=== PATIENT | female | born 1975 | race Caucasian/White ===

== ENCOUNTER 2020-07-12 06:57 | Outpatient (NON) | payer OTHER, BC, SELFPAY ==
[2020-07-13 00:37] LABS: SARS-CoV-2 RNA PCR Negative
== END 2020-07-12 06:58 ==
PROVIDERS: PCP Family Medicine; Visit Provider Family Medicine
DX: R05 Cough (principal); Z20.828 Contact with and (suspected) exposure to other viral communicable diseases
CPT/HCPCS: 87635; C9803; U0003

== ENCOUNTER 2021-11-11 13:03 | Outpatient (CLI) | payer OTHER, SELFPAY ==
--- NOTE | ~2021-11-11 | US_ITS ---
EXAMINATION: US transvaginal DATE: 11/11/2021 13:23 INDICATION: Abnormal uterine bleeding TECHNIQUE: Multiple endovaginal sonographic images of the pelvis were obtained. COMPARISON: 06/11/2017 FINDINGS: The uterus measures 7.8 x 3.5 x 4.7 cm. The endometrial complex measures 3 mm. The right ov ramnoe measures 1.9 x 1.3 x 2.2 cm. The left ovary measures 2.4 x 1.7 x 2.8 cm. There is normal vascular flow in the ovaries. There is no free fluid in the pelvis. IMPRESSION: 1. No sonographic correlate for the patient's symptoms. Reviewed, dictated and finalized at location F. MACY INTAKE COORDINATOR
== END 2021-11-11 13:04 ==
LOC: MICIMG 13:04
PROVIDERS: PCP Family Medicine; Visit Provider Nurse Practitioner
DX: N93.8 Other specified abnormal uterine and vaginal bleeding (principal)
CPT/HCPCS: 76830

== ENCOUNTER 2021-11-14 09:01 | Outpatient (CLI) | payer OTHER, SELFPAY ==
--- NOTE | ~2021-11-14 | XR_ITS ---
EXAMINATION: [id number] EXAM DATE: 11/14/2021 09:13 INDICATION: No known recent injury provided at this time. Pain of the cervical spine posteriorly. TECHNIQUE: Cervical spine frontal, lateral, and open-mouth odontoid projections. There is no prior study for comparison. FINDINGS: There is no evidence of acute cervical fracture. The odontoid process is intact. Pre-dens space is normal. Prevertebral soft tissue is normal. There are no soft tissue abnormalities identi fied. Vertebral body and disc heights are well-maintained. Mild cervical arthropathy. The vertebra l bodies are aligned. IMPRESSION: 1. Mild cervical arthropathy. Reviewed, dictated and finalized at location A. ERABILITY RESEARCHER
== END 2021-11-14 09:02 | disposition home or self-care (01) ==
LOC: ANHIMG 09:05
PROVIDERS: PCP Family Medicine; Visit Provider Family Medicine
DX: M54.2 Cervicalgia (principal)
CPT/HCPCS: 72040

== ENCOUNTER 2022-01-26 00:15 | Day surgery (SDC) | payer BC, SELFPAY ==
[2022-01-20 09:53] VITALS: BMI 29.0
--- NOTE | 2022-01-20 09:59 | PC.NURSE ---
Report to the Outpatient Waiting Room, entrance under the green pavilion located off [facility], at time 0915 on date 01/26/22. OR Time: 1115. - You and your visitor will be asked a series of questions to screen for COVID 19 for your protection. - A mask is required within the hospital. One visitor will be allowed to accompany the patient into the hospital. Patients visitor will be instructed to remain with patient at all times or leave the building. We will allow the visitor to come back to the postoperative area when patient is ready. Preoperative COVID Testing Requirements: TO E-MAIL COPY OF CARD No COVID Test needed if: (proof is required; if not received patient will have Rapid Test prior to entry) - Patient has received COVID Vaccine at least 14 days prior to procedure date or - Patient has positive COVID test result within last 90 days of surgery date. COVID Test needed if above criteria is not met Patients may have clear liquids (water, carbonated beverages, clear teas, apple juice) until 3 hours prior to surgery with a maximum of 20 ounces. - No food from midnight until time of surgery Take the following medications with a SIP of water the morning of surgery: NONE Medications to discontinue per physician: VITAMINS/SUPPLEMENTS Date to take last dose: 01/22/22 Please no make-up, nail andorran, hairspray, perfume, deodorant, or body powder the day of surgery. No jewelry (including any body piercings) or valuables the day of surgery, leave them at home. Please take a shower or bath the night before, or the morning of, surgery with an antibacterial soap. Wear comfortable, loose fitting clothing. - Jewelry must be removed prior to entering the operating room. Rings and piercings that are not removed may be cut off. - The hospital will not accept responsibility for valuables. - Please leave all valuables, including medications, at home the day of surgery. If you are going home after surgery, a licensed company driver must drive you home. - NO public transportation without another adult. - We recommend that an adult stay with you for 24 hours following discharge. - We also recommend that you do not drive, make important decision, drink alcoholic beverages, or take any drugs that were not prescribed by your health care provider for at least 24 hours after your discharge time. Follow any additional instructions given to you from your surgeon. Telephone instructions given to STANTON MOREIRA and asked if any additional questions and then verbalized understanding. Patient advised to call surgeon office or pre surgery nurse liaison [phone] if any additional questions.
--- NOTE | 2022-01-26 07:58 | WPDHPUPDATE1 ---
History and Physical Update Update Date/Time: 01/26/22 07:58 History and Physical has been reviewed, including an updated exam of the patient. There are NO changes in the patient's condition. Risks, benefits, and alternatives have been discussed and questions answered. Patient agrees to proceed with procedure.
--- NOTE | 2022-01-26 08:20 | PM.HPGS ---
History of Present Illness History of Present Illness Consent: Risks, benefits, and alternatives have been discussed and questions answered. Patient agrees to proceed with procedure. Chief complaint: Abnormal Uterine Bleeding Narrative: Ladonna Rocha is a 46 year old female status post endometrial ablation in 2016 with good control of heavy bleeding. She has been on progesterone 200mg days 1 through 12 for control of timing of her bleeding and has done quite well for the past several years. Patient reports at her well-woman exam in October that she has been having random spotting for the prior 3 months. Pelvic ultrasound was ordered and appears normal. It was recommended to proceed with further evaluation with hysteroscopy and D& C. Risks of infection, bleeding, perforation, and inability to enter the uterine cavity due to prior ablation are reviewed. Patient voices understanding and agrees to proceed. Review of Systems Review of Systems: not repeated day of surgery; patient states no changes in status PMFSH Past Medical History Medical History (Updated 01/26/22 @ 08:26 by Rashida Ruiz MD) Elevated parathyroid hormone Kidney stone (normal spontaneous vaginal delivery) Pulmonary nodule Status post hysteroscopy 2006, 2017, 2019 Surgical History Surgical History (Updated 01/26/22 @ 08:26 by Rashida Ruiz MD) H/O lithotripsy H/O: History of endometrial ablation 2006 with thermal ablation and 2016 with Vera ablation History of kidney surgery Nephrostomy tube placed in 2017 Family History Family History Mother Hypertension Family history of gastrointestinal disorder Family history of type 2 diabetes mellitus Family history of lupus erythematosus Father Hypertension Family history of type 1 diabetes mellitus Grandparent Family history of gastrointestinal disorder Family history of Alzheimer's disease Family history of malignant neoplasm of breast in first degree relative Family history of seizure disorder Other Family history of anemia Social History Social History Smoking status: Never smoker Second hand tobacco smoke exposure: No Alcohol intake: never Substance use: never Substance use type: does not use Living arrangements: with family Spiritual care concerns: No Agree to blood products: Yes Meds Home Medications and Allergies Home Medications Medication Instructions Recorded Confirmed Type potassium citrate 10 mEq (1,080 20 meq PO TID tablet 05/14/21 03/08/22 History mg) tablet,extended release omeprazole magnesium 20 mg 20 mg PO BID 11/12/21 01/20/22 History tablet,delayed release hydroxyzine HCl 25 mg PO HS 01/20/22 01/20/22 History Allergies Allergy/AdvReac Type Severity Reaction Status Date / Time No Known Allergies Allergy Verified 01/20/22 09:51 Exam Const: General: healthy appearing and alert Orientation/consciousness: patient oriented x3 Resp: Effort & Inspection: normal respiratory effort Auscultation: clear to auscultation bilaterally Cardio: Rate: regular rate Rhythm: regular rhythm GI: GI Palp: Yes Soft to palpation, No Tenderness to palpation present (GI) and No Palpable mass present : External Female Exam: normal external appearance Speculum Exam - Vagina: normal appearance of the vagina and normal vaginal discharge Speculum Exam - Cervix: normal appearance of the cervix Bimanual exam- vagina & uterus: uterine size normal and consistency normal Bimanual Exam- Adnexa, other: normal adnexae and No adnexal tenderness Neuro: General: patient oriented x3 Assessment and Plan Assessment and plan (1) Irregular bleeding: Code(s): N92.6 - Irregular menstruation, unspecified Status: Acute Assessment and Plan: Plan is to proceed with D&C hysteroscopy
--- NOTE | 2022-01-26 09:34 | P.PNAN_ITS ---
Anes - Initial Pre Proc Eval Procedure: Operation Date: 01/26/22 11:15 Proposed Procedures p Hysteroscopy, Dilation and Curettage - Rashida Ruiz MD Date/Time: 01/26/22 09:34 Surgeon: Rashida Ruiz MD Pre Op Diagnosis: Abnormal Uterine Bleeding Patient Data Age: 46 Gender: F Height: 1.68 m Weight: 81.25 kg Allergies Allergy/AdvReac Type Severity Reaction Status Date / Time No Known Allergies Allergy Verified 01/20/22 09:51 Home Medications Medication Instructions Recorded Confirmed Type potassium citrate 10 mEq (1,080 20 meq PO TID tablet 03/28/21 01/20/22 History mg) tablet,extended release omeprazole magnesium 20 mg 20 mg PO BID 11/12/21 01/20/22 History tablet,delayed release hydroxyzine HCl 25 mg PO HS 01/20/22 01/20/22 History Patient hx anesthesia problems: post op nausea/vomiting Family hx anesthesia problems: none Results Review: All pre-operative results and documents have been reviewed as part of the pre-operative evaluation. [facility] Past Medical History Medical History (Updated 01/26/22 @ 09:34 by Esau Wagner DO) Elevated parathyroid hormone GERD (gastroesophageal reflux disease) Hiatal hernia Kidney stone (normal spontaneous vaginal delivery) Pulmonary nodule Status post hysteroscopy 2006, 2017, 2019 Surgical History Surgical History (Updated 01/26/22 @ 08:26 by Rashida Ruiz MD) H/O lithotripsy H/O: History of endometrial ablation 2006 with thermal ablation and 2016 with Vera ablation History of kidney surgery Nephrostomy tube placed in 2017 Family History Family History Mother Hypertension Family history of gastrointestinal disorder Family history of type 2 diabetes mellitus Family history of lupus erythematosus Father Hypertension Family history of type 1 diabetes mellitus Grandparent Family history of gastrointestinal disorder Family history of Alzheimer's disease Family history of malignant neoplasm of breast in first degree relative Family history of seizure disorder Other Family history of anemia Social History Social History Smoking status: Never smoker Second hand tobacco smoke exposure: No Alcohol intake: never Substance use: never Substance use type: does not use Living arrangements: with family Spiritual care concerns: No Agree to blood products: Yes Anes - Eval Final PreProcedure Day of Procedure 01/26/22 09:34 Patient weight: overweight Heart: regular rate and rhythm Lungs: clear to auscultation and normal air movement Airway: Mallampati scale class II Neurological: alert and oriented Last oral intake: >/= 8 hours ASA classification: III Emergent: no Anesthetic plan: proceed Anesthesia type and monitoring: general GIVS and standard monitoring Results Review: All pre-operative results and documents have been reviewed as part of the pre-operative evaluation. Informed Consent: The patient's anesthetic plan and its attendant risks and benefits were discussed with the patient/family/POA. Questions were solicited and answers provided to the satisfaction of the patient/family/POA.
[2022-01-26] MEDS: LACTATED RINGERS 1,000 ML 30 ML IV CONT (09:45)
[2022-01-26] MEDS: ACETAMINOPHEN 500 MG TABLET 1000 MG PO (09:45)
[2022-01-26 09:49] VITALS: BP 144/83; PULSE 82; RESP 18; TEMP 37.2; O2SAT 96
[2022-01-26] MEDS: KETOROLAC 30 MG/ML VIAL (*BKC) IV PUSH (11:02)
--- NOTE | 2022-01-26 11:22 | W.PM.PROC2 ---
Procedure Note - Detailed Date of Procedure 01/26/22 Pre-op Diagnosis Abnormal Uterine Bleeding Post-op Diagnosis Same Procedure Performed D&C hysteroscopy Surgeon Rashida Ruiz MD Anesthesia MAC and Local Findings Internal cervix is stenotic. Endometrium shows evidence of prior ablation. There is thickened tissue at the endometrial cervical junction on the patient's left posterior wall. Description of Procedure The patient is taken to the operating room and placed under anesthesia in the dorsal lithotomy position. She was prepped and draped in the usual sterile fashion. [place] speculum was placed in the vagina and the cervix grasped on the anterior lip with a tenaculum. Each quadrant was injected with 1% lidocaine. The uterus was attempted to be sounded and stenosis is noted at 3cm. The os Finders are used in the cavity able to be entered. The cervix is then serially dilated with difficulty. The diagnostic hysteroscope was placed with the stated findings. The MyoSure device is opened and placed and the thickened tissue is excised in its entirety. The hysteroscope was removed and the medium sharp curette used to curette the endometrium until a good uterine cry was noted in all areas. All instruments are removed. Sponge, needle, and instrument counts are correct per the OR staff. Patient is awakened from anesthesia and taken to recovery in stable condition. Estimated Blood Loss 5 Drains No Packing No Pathology Yes (Endometrial shavings and curettings) Complications No immediate complications Condition Stable Disposition PACU
[2022-01-26 11:23] VITALS: BP 149/90; PULSE 90; RESP 16; O2SAT 96
[2022-01-26 11:50] VITALS: BP 114/76; PULSE 84
== END 2022-01-26 12:20 | disposition home or self-care (01) ==
PROVIDERS: PCP Family Medicine; Visit Provider Obstetrics & Gynecology Gynecology
PROC: 0U5B8ZZ Destruction of Endometrium, Via Natural or Artificial Opening Endoscopic (ICD-10-PCS; CPT 58563; principal; 2022-01-26 11:15)
DX: N92.6 Irregular menstruation, unspecified (principal); N85.8 Other specified noninflammatory disorders of uterus
CPT/HCPCS: 58558; 88305; A9270; J1885; J2250; J2704; J3010; J7120

== ENCOUNTER 2022-07-09 17:03 | Emergency (ER) | payer BC, SELFPAY ==
[2022-07-09 17:13] VITALS: BP 154/93; PULSE 111; RESP 18; TEMP 36.8; O2SAT 100
--- NOTE | 2022-07-09 17:40 | ED.FEMALEGU ---
HPI - Female Genitourinary General Chief complaint: Urogenital-Female Stated complaint: uti complaint Time Seen by Provider: 07/09/22 17:28 Source: patient Mode of arrival: ambulatory Limitations: no limitations History of Present Illness HPI Narrative: Patient presents today complaining of left flank pain intermittently x1 week. She has also had right flank pain during this time as well. She is complaining of pain at the urethra as well. She has passed 2 kidney stones over the past week. She has had vomiting at night the past 2 nights due to the flank pain. She is been taking Tylenol and Flomax. Significant history for kidney stones. She has an appointment with her urologist and a CT scan scheduled prior to her visit in 5 days. She came in today to make sure that she did not have a UTI as she was hospitalized last year for urosepsis. Related Data Home Medications Medication Instructions Recorded Confirmed potassium citrate 10 mEq (1,080 20 meq PO TID 03/28/21 07/09/22 mg) tablet,extended release omeprazole magnesium 20 mg 20 mg PO BID 11/12/21 07/09/22 tablet,delayed release ergocalciferol (vitamin D2) 1,250 1,250 mcg PO WEEKLY 07/09/22 07/09/22 mcg (50,000 unit) capsule quetiapine 100 mg tablet 100 mg PO DAILY 07/09/22 07/09/22 tamsulosin 0.4 mg capsule 0.4 mg PO PRN PRN pain 07/09/22 07/09/22 Allergies Allergy/AdvReac Type Severity Reaction Status Date / Time No Known Allergies Allergy Verified 07/09/22 17:10 Review of Systems Review of Systems: CONSTITUTIONAL: Denies body aches, fever, chills, or sweats. EYES: Denies visual changes, redness, or discharge. ENT: Denies rhinorrhea, congestion, sore throat, or otalgia. CARDIOVASCULAR: Denies chest pain, palpitations, or edema. RESPIRATORY: Denies cough or dyspnea. GASTROINTESTINAL: Denies abdominal pain, nausea, vomiting, or diarrhea.+ Flank pain GENITOURINARY: Denies dysuria or hematuria.+ Urethral pain SKIN: Denies rash, itching, or wounds. MUSCULOSKELETAL: Denies back pain, joint pain, or myalgia. NEUROLOGIC: Denies headache, numbness, tingling, or weakness. PSYCH: Denies depression or anxiety. PMFSH Past Medical History Medical History Elevated parathyroid hormone GERD (gastroesophageal reflux disease) Hiatal hernia Kidney stone (normal spontaneous vaginal delivery) Pulmonary nodule Status post hysteroscopy 2006, 2016, 2019 Surgical History Surgical History H/O lithotripsy H/O: History of endometrial ablation 2006 with thermal ablation and 2016 with Vera ablation History of kidney surgery Nephrostomy tube placed in 2017 Family History Family History Mother Hypertension Family history of gastrointestinal disorder Family history of type 2 diabetes mellitus Family history of lupus erythematosus Father Hypertension Family history of type 1 diabetes mellitus Grandparent Family history of gastrointestinal disorder Family history of Alzheimer's disease Family history of malignant neoplasm of breast in first degree relative Family history of seizure disorder Other Family history of anemia Social History Social History Smoking status: Never smoker Second hand tobacco smoke exposure: No Alcohol intake: never Substance use: never Substance use type: does not use Spiritual care concerns: No Agree to blood products: Yes Comments At time of signature, I have reviewed and agree with nursing past medical, surgical, social and family history unless otherwise noted. Please see nursing chart for further information. There is no relevant family history pertinent to the presenting complaint Exam Narrative: GENERAL: Well-appearing, well-nourished, and in no
== END 2022-07-09 17:44 | disposition home or self-care (01) ==
PROVIDERS: Emergency Provider Nurse Practitioner; PCP Family Medicine
DX: R10.9 Unspecified abdominal pain (principal); K21.9 Gastro-esophageal reflux disease without esophagitis
CPT/HCPCS: 81003; 99213; G0463

== ENCOUNTER 2022-12-04 08:03 | Emergency (ER) | payer OTHER, SELFPAY ==
[2022-12-04 08:14] VITALS: BP 144/81; PULSE 104; RESP 18; TEMP 36.6; O2SAT 100
--- NOTE | 2022-12-04 08:14 | ED.FEMALEGU ---
HPI - Female Genitourinary General Chief complaint: Urogenital-Female Stated complaint: Possible UTI Time Seen by Provider: 12/04/22 08:14 Source: patient, RN notes reviewed and old records reviewed Mode of arrival: ambulatory Limitations: no limitations History of Present Illness HPI Narrative: 47-year-old female presents [facility] with concerns for a UTI. patient reports she has a history of kidney stones and passed 2 last week. Started with urgency, burning and frequency yesterday morning as well as lower back pain. has had some nausea without abdominal pain, fevers, chest pain or shortness of breath last menstrual period 11/21/22 MD elicited complaint: dysuria and UTI Related Data Home Medications Medication Instructions Recorded Confirmed potassium citrate 10 mEq (1,080 20 meq PO TID 03/28/21 12/04/22 mg) tablet,extended release omeprazole magnesium 20 mg 20 mg PO BID 11/12/21 12/04/22 tablet,delayed release hydroxyzine HCl 25 mg tablet 25 mg PO HS 12/04/22 12/04/22 progesterone micronized 200 mg 200 mg PO DAILY 12/04/22 12/04/22 capsule Allergies Allergy/AdvReac Type Severity Reaction Status Date / Time No Known Allergies Allergy Verified 12/04/22 08:25 Review of Systems Review of Systems: All systems reviewed & are unremarkable except as noted in HPI and below Constitutional: Constitutional: Reports no additional constitutional complaints Eyes: Eyes: Reports no additional eye complaints ENT: Reports system reviewed and no additional complaints, except as documented Cardiovascular: Cardiovascular: Reports no additional cardiovascular complaints, Denies chest pain and Denies dyspnea Respiratory: Respiratory: Reports no additional respiratory complaints, Denies chest congestion, Denies cough and Denies dyspnea Gastrointestinal: Gastrointestinal: Reports no additional gastrointestinal complaints, Denies abdominal pain, Denies nausea and Denies vomiting Genitourinary: Genitourinary: Reports as per HPI and Reports dysuria Musculoskeletal: Musculoskeletal: Reports no additional musculoskeletal complaints Integumentary/Breasts: Skin/Breast: Reports system reviewed and no additional complaints, except as docu Neurologic: Reports system reviewed and no additional complaints, except as documented Psychiatric: Psychiatric: Reports no additional psychiatric complaints Allergic/Immunologic: Allergic/Immunologic: Reports no additional allergic/immunologic complaints PMFSH Past Medical History Medical History Elevated parathyroid hormone GERD (gastroesophageal reflux disease) Hiatal hernia Kidney stone (normal spontaneous vaginal delivery) Pulmonary nodule Status post hysteroscopy 2006, 2017, 2019 Surgical History Surgical History H/O lithotripsy H/O: History of endometrial ablation 2006 with thermal ablation and 2016 with Vera ablation History of kidney surgery Nephrostomy tube placed in 2017 Family History Family History Mother Hypertension Family history of gastrointestinal disorder Family history of type 2 diabetes mellitus Family history of lupus erythematosus Father Hypertension Family history of type 1 diabetes mellitus Grandparent Family history of gastrointestinal disorder Family history of Alzheimer's disease Family history of malignant neoplasm of breast in first degree relative Family history of seizure disorder Other Family history of anemia Social History Social History Smoking status: Never smoker Second hand tobacco smoke exposure: No Alcohol intake: never Substance use: never Substance use type: does not use Living arrangements: with family Occupation/Education: occupation Spiritual care concerns
== END 2022-12-04 08:35 | disposition home or self-care (01) ==
PROVIDERS: Emergency Provider Nurse Practitioner
DX: N39.0 Urinary tract infection, site not specified (principal); K21.9 Gastro-esophageal reflux disease without esophagitis; Z87.442 Personal history of urinary calculi
CPT/HCPCS: 81003; 87086; 87088; 99213; G0463

== ENCOUNTER 2022-12-22 08:01 | Emergency (ER) | payer OTHER, SELFPAY ==
--- NOTE | 2022-12-22 08:03 | ED.URI ---
HPI - URI/Sore Throat General Chief Complaint: Upper Respiratory Infection Stated Complaint: Headache,Congestion,Cough Time Seen by Provider: 12/22/22 08:15 Source: patient, RN notes reviewed and old records reviewed Mode of arrival: ambulatory Limitations: no limitations History of Present Illness HPI Narrative: 47-year-old female presents to the [facility] with complaints of frontal headache, nasal congestion and fever this morning. Reports a fever of 102, has taken DayQuil symptoms started , 5 days ago Related Data Home Medications Medication Instructions Recorded Confirmed potassium citrate 10 mEq (1,080 20 meq PO TID 03/28/21 12/22/22 mg) tablet,extended release omeprazole magnesium 20 mg 20 mg PO BID 11/12/21 12/22/22 tablet,delayed release hydroxyzine HCl 25 mg tablet 25 mg PO HS 12/04/22 12/22/22 progesterone micronized 200 mg 200 mg PO DAILY 12/04/22 12/22/22 capsule quetiapine 100 mg tablet 100 mg DIRECTED 12/22/22 12/22/22 Allergies Allergy/AdvReac Type Severity Reaction Status Date / Time No Known Allergies Allergy Verified 12/04/22 08:25 Review of Systems Review of Systems: All systems reviewed & are unremarkable except as noted in HPI and below Constitutional: Constitutional: Reports no additional constitutional complaints Eyes: Eyes: Reports no additional eye complaints ENT: Reports as per HPI and Reports nasal congestion Cardiovascular: Cardiovascular: Reports no additional cardiovascular complaints, Denies chest pain and Denies dyspnea Respiratory: Respiratory: Reports no additional respiratory complaints, Denies chest congestion, Denies cough and Denies dyspnea Gastrointestinal: Gastrointestinal: Reports no additional gastrointestinal complaints, Denies abdominal pain, Denies nausea and Denies vomiting Musculoskeletal: Musculoskeletal: Reports no additional musculoskeletal complaints Integumentary/Breasts: Skin/Breast: Reports system reviewed and no additional complaints, except as docu Neurologic: Reports system reviewed and no additional complaints, except as documented Psychiatric: Psychiatric: Reports no additional psychiatric complaints Allergic/Immunologic: Allergic/Immunologic: Reports no additional allergic/immunologic complaints PMFSH Past Medical History Medical History Elevated parathyroid hormone GERD (gastroesophageal reflux disease) Hiatal hernia Kidney stone (normal spontaneous vaginal delivery) Pulmonary nodule Status post hysteroscopy 2006, 2016, 2018 Surgical History Surgical History H/O lithotripsy H/O: History of endometrial ablation 2006 with thermal ablation and 2016 with Vera ablation History of kidney surgery Nephrostomy tube placed in 2017 Family History Family History Mother Hypertension Family history of gastrointestinal disorder Family history of type 2 diabetes mellitus Family history of lupus erythematosus Father Hypertension Family history of type 1 diabetes mellitus Grandparent Family history of gastrointestinal disorder Family history of Alzheimer's disease Family history of malignant neoplasm of breast in first degree relative Family history of seizure disorder Other Family history of anemia Social History Social History Smoking status: Never smoker Second hand tobacco smoke exposure: No Alcohol intake: never Substance use: never Substance use type: does not use Living arrangements: with family Occupation/Education: occupation Spiritual care concerns: No Agree to blood products: Yes Comments At the time of my signature, I reviewed and agree with the nursing past medical, surgical, social, and family history. There is no relevant family history
[2022-12-22 08:12] VITALS: BP 142/89; PULSE 92; RESP 16; TEMP 36.5; O2SAT 99
== END 2022-12-22 08:42 | disposition home or self-care (01) ==
PROVIDERS: Emergency Provider Nurse Practitioner
DX: J32.9 Chronic sinusitis, unspecified (principal); Z20.822 Contact with and (suspected) exposure to COVID-19; K21.9 Gastro-esophageal reflux disease without esophagitis
CPT/HCPCS: 87426; 87804; 99213; C9803; G0463

== ENCOUNTER 2024-03-28 14:16 | Emergency (ER) | payer OTHER, SELFPAY ==
[2024-03-28 14:25] VITALS: BP 127/85; PULSE 113; RESP 16; TEMP 36.6; O2SAT 98
--- NOTE | 2024-03-28 14:41 | ED.FEMALEGU ---
HPI - Female Genitourinary General Chief complaint: Urogenital-Female Stated complaint: UTI symptoms Time Seen by Provider: 03/28/24 14:39 Source: patient and RN notes reviewed Mode of arrival: ambulatory Limitations: no limitations History of Present Illness HPI Narrative: 48-year-old female presents with concern for dysuria, frequency, urgency. She reports she has had a kidney stone for which she is taking Flomax and Zofran, she has a urologist. She reports she woke up this morning with burning with urination and suprapubic discomfort. She reports nausea without vomiting, low back pain, general malaise MD elicited complaint: UTI Related Data Home Medications Medication Instructions Recorded Confirmed omeprazole magnesium 20 mg 20 mg PO BID 11/12/21 03/28/24 tablet,delayed release hydroxyzine HCl 25 mg tablet 25 mg PO HS 12/04/22 03/28/24 progesterone micronized 200 mg 200 mg PO DAILY 12/04/22 03/28/24 capsule buspirone 10 mg tablet 10 mg DIRECTED 03/28/24 03/28/24 Allergies Allergy/AdvReac Type Severity Reaction Status Date / Time No Known Allergies Allergy Verified 09/15/23 08:07 Review of Systems Review of Systems: CONSTITUTIONAL: Reports malaise. Denies chills, sweats, or fever. CARDIOVASCULAR: Denies chest pain, palpitations, or edema. RESPIRATORY: Denies cough or dyspnea. GASTROINTESTINAL: Denies abdominal pain, diarrhea, vomiting. Reports nausea GENITOURINARY: Reports dysuria, frequency, urgency, suprapubic pressure. Reports flank pain SKIN: Denies rash or itching. MUSCULOSKELETAL: Reports back pain, myalgia. All systems reviewed & are unremarkable except as noted in HPI and below PMFSH Past Medical History Medical History (Updated 03/28/24 @ 14:48 by Meli Tyler NP) Elevated parathyroid hormone GERD (gastroesophageal reflux disease) Hiatal hernia Kidney stone (normal spontaneous vaginal delivery) Pulmonary nodule Status post hysteroscopy 2006, 2016, 2018 Surgical History Surgical History H/O lithotripsy H/O: History of endometrial ablation 2006 with thermal ablation and 2016 with Vera ablation History of kidney surgery Nephrostomy tube placed in 2017 Family History Family History Mother Hypertension Family history of gastrointestinal disorder Family history of type 2 diabetes mellitus Family history of lupus erythematosus Father Hypertension Family history of type 1 diabetes mellitus Grandparent Family history of gastrointestinal disorder Family history of Alzheimer's disease Family history of malignant neoplasm of breast in first degree relative Family history of seizure disorder Other Family history of anemia Social History Social History Smoking status: Never smoker Second hand tobacco smoke exposure: No Alcohol intake: never Substance use: never Substance use type: does not use Living arrangements: with family Occupation/Education: occupation Spiritual care concerns: No Agree to blood products: Yes Comments At time of signature, agree with nursing past medical, surgical, social and family history. There is no relevant family history pertinent to the presenting complaint Exam Narrative: GENERAL: Well-appearing, well-nourished, and in no acute distress. HEAD: Normocephalic. EYES: PERRLA, conjunctivae clear. NECK: Supple. No lymphadenopathy CHEST: Clear to auscultation. No respiratory distress. HEART: Regular rate and rhythm. ABDOMEN: Soft, suprapubic tenderness, nondistended, normal active bowel sounds, no palpable or pulsatile masses, no guarding. No CVA tenderness SKIN: Warm, dry, no rash. NEURO: Alert and oriented x3. PSYCH: Normal mood and affect Course Course Emergency Course: Patient is aware of diagnosi
== END 2024-03-28 14:54 | disposition home or self-care (01) ==
PROVIDERS: Emergency Provider Nurse Practitioner; PCP Nurse Practitioner Family
DX: R30.0 Dysuria (principal); R35.0 Frequency of micturition; R39.15 Urgency of urination; R10.30 Lower abdominal pain, unspecified; R10.9 Unspecified abdominal pain; K21.9 Gastro-esophageal reflux disease without esophagitis; Z87.442 Personal history of urinary calculi
CPT/HCPCS: 81003; 87086; 87088; 99213; G0463

== ENCOUNTER 2025-10-01 02:05 | Day surgery (SDC) | payer OTHER, BC, SELFPAY ==
[2025-09-17 13:01] VITALS: BMI 26.6
[2025-10-01 06:51] VITALS: BP 135/94; PULSE 110; RESP 16; TEMP 36.4; O2SAT 100
--- NOTE | 2025-10-01 06:51 | WPDANESEPPF ---
Anes - Initial Pre Proc Eval Procedure: Operation Date: 10/01/25 08:00 Proposed Procedures p Screening Colonoscopy - Redd Leonardo DO Date/Time: 10/01/25 06:51 Surgeon: Redd Leonardo DO Pre Op Diagnosis: Neoplasm screening Patient Data Age: 49 Gender: F Height: 1.68 m Weight: 74.9 kg Allergies Allergy/AdvReac Type Severity Reaction Status Date / Time No Known Allergies Allergy Verified 10/01/25 06:47 Home Medications ?Medication ?Instructions ?Recorded ?Confirmed ?Type omeprazole magnesium 20 mg 20 mg PO BID 11/12/21 10/01/25 History tablet,delayed release hydroxyzine HCl 25 mg tablet 25 mg PO HS 12/04/22 10/01/25 History buspirone 10 mg tablet 10 mg PO BID 05/23/25 10/01/25 History progesterone micronized 200 mg 200 mg PO DAILY 05/23/25 10/01/25 History capsule potassium citrate 10 mEq (1,080 1,080 mg PO TID 09/17/25 10/01/25 History mg) tablet,extended release Patient hx anesthesia problems: none Family hx anesthesia problems: none Results Review: All pre-operative results and documents have been reviewed as part of the pre-operative evaluation. [facility] Past Medical History Medical History GERD (gastroesophageal reflux disease) Hiatal hernia Status post hysteroscopy 2006, 2017, 2019 (normal spontaneous vaginal delivery) Elevated parathyroid hormone Pulmonary nodule Kidney stone Surgical History Surgical History History of kidney surgery Nephrostomy tube placed in 2017 History of endometrial ablation 2006 with thermal ablation and 2017 with Vera ablation H/O: H/O lithotripsy Family History Family History Mother Hypertension Family history of gastrointestinal disorder Family history of type 2 diabetes mellitus Family history of lupus erythematosus Father Hypertension Family history of type 1 diabetes mellitus Grandparent Family history of gastrointestinal disorder Family history of Alzheimer's disease Family history of malignant neoplasm of breast in first degree relative Family history of seizure disorder Other Family history of anemia Social History Social History (Updated 05/22/25 @ 11:59 by Efraín Wynne) Social History: 05/20/25 somewhat confident with medical forms. Smoking status: Never smoker Second hand tobacco smoke exposure: No Alcohol intake: never Substance use: never Substance use type: does not use Do You Feel Safe in your Home?: Yes Lack of Transportation: No Lack of Food: Never True Current Housing: I Have Housing Concerned About Future Housing: No Difficulty Paying Gas/Electric Bills: No Difficulty Paying for Meds: No Currently Unemployed: No Education: Associate Degree Difficulty w/ Childcare or Family Care: No Living arrangements: with family Occupation/Education: occupation Spiritual care concerns: No Agree to blood products: Yes Anes - Eval Final PreProcedure Day of Procedure 10/01/25 06:51 Patient weight: overweight Heart: regular rate and rhythm Lungs: clear to auscultation Airway: Mallampati scale class II Neurological: alert and oriented Last oral intake: >/= 8 hours ASA classification: II Emergent: no Anesthetic plan: proceed Anesthesia type and monitoring: general GIVS and standard monitoring Results Review: All pre-operative results and documents have been reviewed as part of the pre-operative evaluation. Informed Consent: The patient's anesthetic plan and its attendant risks and benefits were discussed with the patient/family/POA. Questions were solicited and answers provided to the satisfaction of the patient/family/POA.
[2025-10-01 06:55] LABS: BEDSIDEPREGUCG Negative (Negative)
[2025-10-01] MEDS: LACTATED RINGERS 1,000 ML 150 ML IV CONT (07:02)
--- NOTE | 2025-10-01 07:49 | PM.IMHP ---
H&P: HPI History of Present Illness Date/Time: 10/01/25 07:49 Chief Complaint: screening for colorectal cancer Narrative: this is a 49-year-old woman who presents for screening colonoscopy. She did have a colonoscopy about 20 years ago for some GI complaints, but that was normal. She has a family history of Crohn's disease but no family history of colon cancer. She denies any hematochezia or melena. Review of Systems Review of Systems: All systems reviewed & are unremarkable except as noted in HPI and below Constitutional: Constitutional: Denies chills, Denies fever(s), Denies headache(s) and Denies weight loss Eyes: Eyes: Denies change in vision ENT: Denies dizziness, Denies headache(s), Denies neck mass and Denies throat swelling Cardiovascular: Cardiovascular: Denies chest pain, Denies lightheadedness and Denies dyspnea Respiratory: Respiratory: Denies cough, Denies dyspnea and Denies wheezing Gastrointestinal: Gastrointestinal: Denies abdominal pain, Denies change in bowel habits, Denies nausea and Denies vomiting Genitourinary: Genitourinary: Denies hematuria and Denies dysuria Musculoskeletal: Musculoskeletal: Reports as per HPI Integumentary/Breasts: Skin/Breast: Reports as per HPI Neurologic: Denies dizziness and Denies headache(s) Allergic/Immunologic: Allergic/Immunologic: Denies throat swelling and Denies wheezing ON LICENSE OF [facility] Past Medical History Medical History GERD (gastroesophageal reflux disease) Hiatal hernia Status post hysteroscopy 2006, 2017, 2019 (normal spontaneous vaginal delivery) Elevated parathyroid hormone Pulmonary nodule Kidney stone Surgical History Surgical History History of kidney surgery Nephrostomy tube placed in 2017 History of endometrial ablation 2007 with thermal ablation and 2017 with Vera ablation H/O: H/O lithotripsy Family History Family History Mother Hypertension Family history of gastrointestinal disorder Family history of type 2 diabetes mellitus Family history of lupus erythematosus Father Hypertension Family history of type 1 diabetes mellitus Grandparent Family history of gastrointestinal disorder Family history of Alzheimer's disease Family history of malignant neoplasm of breast in first degree relative Family history of seizure disorder Other Family history of anemia Social History Social History (Updated 05/22/25 @ 11:59 by Efraín Wynne) Social History: 05/20/25 somewhat confident with medical forms. Smoking status: Never smoker Second hand tobacco smoke exposure: No Alcohol intake: never Substance use: never Substance use type: does not use Do You Feel Safe in your Home?: Yes Lack of Transportation: No Lack of Food: Never True Current Housing: I Have Housing Concerned About Future Housing: No Difficulty Paying Gas/Electric Bills: No Difficulty Paying for Meds: No Currently Unemployed: No Education: Associate Degree Difficulty w/ Childcare or Family Care: No Living arrangements: with family Occupation/Education: occupation Spiritual care concerns: No Agree to blood products: Yes Meds Home Medications and Allergies Home Medications ?Medication ?Instructions ?Recorded ?Confirmed ?Type omeprazole magnesium 20 mg 20 mg PO BID 11/12/21 10/01/25 History tablet,delayed release hydroxyzine HCl 25 mg tablet 25 mg PO HS 12/04/22 10/01/25 History buspirone 10 mg tablet 10 mg PO BID 05/23/25 10/01/25 History progesterone micronized 200 mg 200 mg PO DAILY 05/23/25 10/01/25 History capsule potassium citrate 10 mEq (1,080 1,080 mg PO TID 09/17/25 10/01/25 History mg) tablet,extended release Allergies Allergy/AdvReac Type Severity Reaction Status Date / Time No Known Allergies Allergy Verified 10/01/25 06:47 Vital Signs Vital Signs - 24 hr 10/01/25 06:51 Temperature 97.6 F Pulse Rate 110 H Respiratory Rate 16 Blood Pressure 135/94 H Pulse Oximetry 100 Oxygen Delivery Room Air Exam Const: General: no acute distress and alert Orientation/consciousness: patient oriented x3 HENMT: Head: normocephalic and atraumatic Ears: hearing grossly normal bilaterally Face/Nose/Sinus: Normal nares present Mouth: Yes Normal oral and palatal mucosa present Eyes: Periorbital: periorbital findings normal Sclera: sclerae normal EOM: EOMs intact bilaterally Neck: Neck: normal visual inspection, no lymphadenopathy and trachea midline Chest: Chest palpation & inspection: normal inspection of the chest Resp: Effort & Inspection: normal respiratory effort Auscultation: clear to auscultation bilaterally Cardio: Jugular venous distension: no JVD Rate: regular rate Rhythm: regular rhythm Heart sounds: S1 normal heart sound present and S2 normal heart sound present Peripheral pulses: Peripheral pulses 2+ throughout GI: Inspection: normal to inspection GI Palp: Yes Soft to palpation, No Tenderness to palpation present (GI), No Guarding due to palpation present (GI) and No Rebound tenderness present Percussion: Yes normal to percussion Auscultation: normal bowel sounds : General: Yes no CVA tenderness Back/Spine/Pelvis: Back: no CVA tenderness Neuro: General: patient oriented x3, no focal motor deficits and CN's II-XI intact bilaterally Cognition (Neuro): normal cognition Speech: normal speech Motor exam (neuro): 5/5 motor strength present throughout Extrem: General: capillary refill normal and no clubbing, cyanosis or edema Assessment and Plan Assessment and plan (1) Screening for colorectal cancer: Code(s): Z12.11 - Encounter for screening for malignant neoplasm of colon; Z12.12 - Encounter for screening for malignant neoplasm of rectum Status: Acute Assessment and Plan: I have recommended colonoscopy. I have discussed the procedure, risks, benefits, and alternatives. Questions were answered. Patient is agreeable to proceed.
[2025-10-01 08:13] VITALS: BP 114/77; PULSE 86; RESP 19; O2SAT 98
[2025-10-01 08:23] VITALS: BP 127/84; PULSE 82; RESP 18; O2SAT 100
[2025-10-01 08:33] VITALS: BP 120/87; PULSE 82; RESP 20; O2SAT 100
== END 2025-10-01 08:39 | disposition home or self-care (01) ==
PROVIDERS: Anesthesiology; PCP Nurse Practitioner Family; Visit Provider Surgery
PROC: 0DJD8ZZ Inspection of Lower Intestinal Tract, Via Natural or Artificial Opening Endoscopic (ICD-10-PCS; CPT 45378; principal; 2025-10-01 08:00)
DX: Z12.11 Encounter for screening for malignant neoplasm of colon (principal)
CPT/HCPCS: 45378; J2704; J7120